=== PATIENT | male | born 1950 | race Caucasian/White ===

== ENCOUNTER 2022-03-10 19:02 | Emergency (ER) | payer BC ==
[~2022-03-10] VITALS: Ht 170.2 cm; Wt 86.2 kg
[2022-03-10] MEDS ORDERED: JANUVIA50 MG PO (20:00)
[2022-03-10] MEDS ORDERED: METFORMIN HCL1000 M2 PO (20:00)
[2022-03-10] MEDS ORDERED: DUI500 PO (23:01)
== END 2022-03-11 00:40 | disposition home or self-care (01) ==
LOC: ER 19:02
DX: S60.041A Contusion of right ring finger without damage to nail, initial encounter (principal); W03.XXXA Other fall on same level due to collision with another person, initial encounter; Y93.01 Activity, walking, marching and hiking; Y92.89 Other specified places as the place of occurrence of the external cause; Y99.9 Unspecified external cause status; E11.9 Type 2 diabetes mellitus without complications; Z79.84 Long term (current) use of oral hypoglycemic drugs